=== PATIENT | female | born 1970 | race Caucasian/White ===

== ENCOUNTER 2017-02-07 20:58 | Emergency (ER) | payer OTHER, MEDICARE ==
[~2017-02-07] VITALS: Ht 177.8 cm; Wt 105.2 kg
[2017-02-07 21:33] LABS: ABSOLUTE BASOPHIL COUNT 0 /CUMM (0.0-0.2); ABSOLUTE EOSINOPHIL COUNT 0.2 /CUMM (0.0-0.7); ABSOLUTE GRANULOCYTE CT 6.2 /CUMM (1.4-6.5); ABSOLUTE LYMPH COUNT 2.7 /CUMM (1.2-3.4); ABSOLUTE MONOCYTE COUNT 0.7 /CUMM (0.10-0.60); BASOPHIL % 0.1 % (0.0-2.0); EOSINOPHIL % 1.8 % (0-5); GRANULOCYTE % 63.2 % (42.2-75.2); HEMATOCRIT 45.8 % (37-47); MEAN CORPUSCULAR HGB 30.5 PG (27.0-31.0); MEAN CORPUSCULAR HGB CONC 33.3 G/DL (33.0-37.0); MEAN CORPUSCULAR VOLUME 91.4 FL (81.0-99.0); MEAN PLATELET VOLUME 10.2 FL (7.4-10.4); PLATELET COUNT 215 /CUMM (130-400); RBC DISTRIBUTION WIDTH 13.7 % (11.5-14.5); RED BLOOD CELL CT 5.01 /CUMM (4.20-5.40); WHITE BLOOD CELL COUNT 9.8 /CUMM (4.8-10.8)
--- NOTE | 2017-02-07 22:02 | ED GENERAL ADULT ---
History of Present Illness General Chief Complaint: General Adult Stated Complaint: HIGH BLOOD SUGAR, BLURRY VISION, CONFUSION Source: patient, EMS Exam Limitations: poor historian Vital Signs & Intake/Output Vital Signs & Intake/Output ED Intake and Output 02/09 0000 02/08 1200 Intake Total 1000 Output Total Balance 1000 Intake, IV 1000 Allergies Coded Allergies: Penicillins (HIVES 02/07/17) Sulfa (Sulfonamide Antibiotics) (RASH 02/07/17) Reconcile Medications Clindamycin HCl (Cleocin HCl) 300 MG CAPSULE 1 CAP PO TID DENTAL INFECTION Triage Note: PT TO ED C/O HIGH FINGERSTICK AT HOME, SEEING SPOTS AND CONFUSION. PMH OF IDDM, STATES WOKE UP AT 230 THIS AM, FELT "WEIRD AND DIZZY SO I KNEW MY SUGAR WAS HIGH" "I DID A FACE PLANT ON THE FLOOR AND KNOCKED OUT 2 OF MY FRONT TEETH" SPENT ALL DAY IN BWED WITH DOG. FINGERSTICK AT HOME 579 AT 2012. TOOK 60 UNITS HUMALOG AT 2034. FINGERSTICK IN TRIAGE 385. PT STATES SHE FEELS CONFUSED "NOT MYSELF" PMH OF HTN, BP 202/96 MANUAL. STATES A1C WAS LAST OVER 14. INSULIN WAS RECENTLY INCREASED Triage Nurses Notes Reviewed? yes Onset: Gradual Duration: day(s): (1) Timing: remote history Injury Environment: home Severity: severe Severity Numbers: 8 No Modifying Factors: none : No Patient currently breastfeeds: No HPI: Patient is a 46-year-old female with history of diabetes presenting to the emergency department with chief complaint of elevated blood glucose level has been going on for the past 24 hours. She had associated blurred vision with it. She also felt confused at the time but does not currently feel confused. She woke up last night and checked her blood glucose level can she felt lightheaded was high and it read as "high". She took appropriate medication to help with her hyperglycemia at the time and went back to sleep. She woke up a second time in the morning and thus when she started to feel confused. She took her blood glucose level again and it was also noted as elevated, patient reports it was around 400. She became lightheaded and then passed out. She reports that she fell on her 2 front teeth and they got knocked out. She was only out for a few seconds because she has a therapy dog who woke her up. Denies any neck pain or back pain. Patient also complaining about a dental infection in the past 6 months. She reports that her right lower gum line has been erythematous and positive been coming on over the past 6 months. Unable to get in to see her dentist. Denies any fevers or chills. No palpitations. (VICENTA ZARATE) Past History Travel History Traveled to [place] past 21 day No Medical History Any Pertinent Medical History? see below for history Cardiovascular: hypertension Gastrointestinal: FATTY LIVER Endocrine: diabetes Surgical History Surgical History: non-contributory Psychosocial History What is your primary language Turkmen Tobacco Use: Never used ETOH Use: denies use Illicit Drug Use: denies illicit drug use Family History Hx Contributory? No (VICENTA ZARATE) Review of Systems Review of Systems Constitutional: Reports: malaise, weakness. Comments Review of systems: See HPI, All other systems negative. Constitutional, no chills fever or weight loss HEENT: no sore throat no congestion Cardiovascular: No chest pain ,palpitation , orthopnea or ankle swelling Skin, no jaundice no rashes Respiratory: No dyspnea cough sputum or hemoptysis GI: No nausea no vomiting : No dysuria No hematuria Muscle skeletal: no back pain, no neck pain, Neurologic: No numbness Psych: No stress anxiety or depression,. Heme/endocrine: No bruising no bleeding no polyuria or polydipsia Immunology: No splenectomy or history of AIDS (VICENTA ZARATE) Physical Exam Physical Exam General Appearance: well developed/nourished, no apparent distress, alert, awake , comfortable Comments: Well-developed well-nourished person in no acute distress HEENT: extraocular motion intact, no nystagmus. Pupils equally round and reactive to light and accommodation. Nose is atraumatic. External auditory canal and Tympanic membranes clear. Pharynx normal. No swelling or edema. Patient does have several missing teeth, moderate erythema noted on the right lower gumline with mild amount of purulent discharge expelled with pressure. Neck: Supple, no lymphadenopathy, normal range of motion without pain or tenderness, no C-spine tenderness. Back: Nontender, no CVA tenderness. Full range of motion Cardiovascular: Regular rate and rhythms no murmurs rubs or gallops, normal JVP Respiratory: Chest nontender. No respiratory distress.breath sounds clear to auscultation bilaterally Abdomen: Soft, nontender nondistended, no appreciable organomegaly. Normal bowel sounds. No ascites, no rebound or guarding. Extremity: No edema, no calf tenderness to palpation, normal and equal pulses. Muscular strength is 5 out of 5 in all extremities. Supervisor Shuttle Preparation strength is equal and symmetric bilaterally. Neuro: Alert oriented x3, motor sensory normal, cranial nerves II through XII grossly intact. Cerebellar testing is unremarkable. Skin: No appreciable rash on exposed skin, skin is warm and dry. Psych: Mood and affect is normal, memory and judgment is normal. Core Measures ACS in differential dx? Yes CVA/TIA Diagnosis: No Severe Sepsis Present: No Septic Shock Present: No (FABIAN MARTINES,VICENTA) Progress Differential Diagnoses I considered the following diagnoses in my evaluation of the patient: DKA, hyperglycemia, hypoglycemia, poor control of diabetes, intracranial hemorrhage, electrolyte abnormality, dehydration, dental infection, acute dental trauma Plan of Care: Orders Procedure Date/time Status Add-on Test (ER Only) 02/088 Active Add-on Test (ER Only) 02/07 225 Active FingerStick- Glucose 02/07 2218 Active Add-on Test (ER Only) 02/07 2213 Active URINALYSIS 02/07 2201 Complete EKG 02/08 2148 Active ARTERIAL BLOOD GAS (GEN) 02/07 2147 Complete TROPONIN LEVEL 02/07 2122 Active CREATINE PHOSPHOKINASE 02/07 2122 Active LIPASE 02/07 2119 Active COMPREHENSIVE METABOLIC PANEL 02/07 2119 Active CBC WITHOUT DIFFERENTIAL 02/07 2119 Complete AMYLASE 02/07 2119 Active ACETONE 02/07 2119 Active Laboratory Tests 02/08/17 0010: Urine Color YEL, Urine Clarity CLEAR, Urine pH 6.5, Ur Specific [place] 1.010, Urine Protein NEG, Urine Ketones NEG, Urine Nitrite NEG, Urine Bilirubin NEG, Urine Urobilinogen 0.2, Ur Leukocyte Esterase NEG, Ur Microscopic EXAM NOT REQUIRED, Urine Hemoglobin NEG, Urine Glucose >=1000 H 02/07/170: pH 7.45, pCO2 33 L, pO2 98, HCO3 23, ABG O2 Sat (Measured) 95.0 L, P-50 (Temp Corrected) N, Carboxyhemoglobin 2.5, O2 Concentration % R/A, Temperature 98.5, Phlebotomy Draw Site LEFT RADIAL 02/07/172121: Anion Gap 15, Estimated GFR > 60, BUN/Creatinine Ratio 13.3, Glucose 418 H, Calcium 10.0, Total Bilirubin 0.4, AST 32, ALT 50, Alkaline Phosphatase 77, Creatine Kinase 96, Troponin I Pending, Total Protein 8.0, Albumin 4.9, Globulin 3.1, Albumin/Globulin Ratio 1.6, Amylase 45, Lipase 266, CBC w Diff NO MAN DIFF REQ, RBC 5.01, MCV 91.4, MCH 30.5, RDW 13.7, MPV 10.2, Gran % 63.2, Lymphocytes % 27.3, Monocytes % 7.6, Eosinophils % 1.8, Basophils % 0.1, Absolute Granulocytes 6.2, Absolute Lymphocytes 2.7, Absolute Monocytes 0.7 H, Absolute Eosinophils 0.2, Absolute Basophils 0, PUBS MCHC 33.3, Acetone Level NEGATIVE Diagnostic Imaging: Viewed by Me: Radiology Read. Discussed w/RAD: Radiology Read. Radiology Impression: PATIENT: CHARLES GARNICA PRESENT AGE: 46 PATIENT ACCOUNT NO: [id number] : 71 LOCATION: [facility] ORDERING PHYSICIAN: VICENTA MARTINES SERVICE DATE: 02/07/17 EXAM TYPE: CAT - CT HEAD WO IV CONTRAST EXAMINATION: CT HEAD WITHOUT CONTRAST CLINICAL INFORMATION: Hypertensive urgency and blurred vision. Confusion. COMPARISON: None. TECHNIQUE: Contiguous axial imaging was performed from the skull base to vertex without intravenous administration of contrast. DLP: 600 mGy-cm FINDINGS: No acute intracranial abnormality. No acute intracranial hemorrhage, mass or mass effect or abnormal extra-axial fluid collections. The density within the dural venous sinuses is within normal limits. The ventricles are normal in size, without hydrocephalus. There are no focal areas of hypoattenuation within a vascular distribution to suggest acute transcortical ischemia. The basilar cisterns are patent. No acute calvarial abnormality is identified. Soft tissues appear unremarkable. The imaged paranasal sinuses and mastoid air cells are well aerated. IMPRESSION: No acute intracranial pathology. DICTATED BY: PRIYA VAZQUEZ MD DATE/TIME DICTATED:02/07/172238 PATENT AGENT:EDWARD DATE/TIME TRANSCRIBED:02/07/172238 CONFIDENTIAL, DO NOT COPY WITHOUT APPROPRIATE AUTHORIZATION. <Electronically signed in Other Vendor System> Initial ED EKG: SINUS TACHY Comments: Arrival patient medicated with IV hydration. She does have an active dental infection. Otherwise neurologically intact. She'll go for CT secondary to syncope. Likely secondary to hyperglycemia. Patient's blood glucose here on arrival was over 400. We will assess for DKA. Patient informed of all lab work results and imaging study results. No signs of DKA. We will continue monitoring blood glucose until it gets down to approximately 2:15 and patient can be discharged home. Patient's repeat blood glucose level was 259. She is alert and oriented. No continued symptoms. She'll be treated for dental infection and discharged home. She'll follow-up with her dentist on Saturday. Patient nontoxic. She is educated on keeping a close dry blood glucose levels and obtaining better control. She will WORK ON THIS with her primary care physician. (VICENTA ZARATE) Departure Departure Time of Disposition: 108 Disposition: HOME OR SELF CARE Condition: Stable Clinical Impression Primary Impression: Hyperglycemia Secondary Impressions: Dental infection Syncope Qualifiers: Syncope type: unspecified Qualified Code: R55 - Syncope and collapse Additional Instructions: Follow-up with her primary care physician call to make appointment. Take an of access prescribed. Keep a close eye on blood glucose levels. Return for worsening symptoms or concerns. Departure Forms: Customer Survey General Discharge Information Prescriptions: Current Visit Scripts Clindamycin HCl (Cleocin HCl) 1 CAP PO TID #30 CAP (VICENTA ZARATE) PA/STRAIGHTENING MACHINE FEEDER Co-Sign Statement Statement: ED Attending supervision documentation- [] I saw and evaluated the patient. I have also reviewed all the pertinent lab results and diagnostic results. I agree with the findings and the plan of care as documented in the PA's/STRAIGHTENING MACHINE FEEDER's documentation. x I have reviewed the ED Record and agree with the PA's/STRAIGHTENING MACHINE FEEDER's documentation. [] Additions or exceptions (if any) to the PAs/STRAIGHTENING MACHINE FEEDER's note and plan are summarized below: [] (ANA LUISA SAUCEDA MD) Critical Care Note Critical Care Note Critical Care Time: non-applicable (VICENTA ZARATE)
--- NOTE | 2017-02-07 22:43 | CT SCAN REPORT ---
EXAMINATION: CT HEAD WITHOUT CONTRAST CLINICAL INFORMATION: Hypertensive urgency and blurred vision. Confusion. COMPARISON: None. TECHNIQUE: Contiguous axial imaging was performed from the skull base to vertex without intravenous administration of contrast. DLP: 600 mGy-cm FINDINGS: No acute intracranial abnormality. No acute intracranial hemorrhage, mass or mass effect or abnormal extra-axial fluid collections. The density within the dural venous sinuses is within normal limits. The ventricles are normal in size, without hydrocephalus. There are no focal areas of hypoattenuation within a vascular distribution to suggest acute transcortical ischemia. The basilar cisterns are patent. No acute calvarial abnormality is identified. Soft tissues appear unremarkable. The imaged paranasal sinuses and mastoid air cells are well aerated. IMPRESSION: No acute intracranial pathology.
[2017-02-08] MEDS ORDERED: CLEOCIN HCL300 M1 PO (01:10)
[2017-02-08 02:29] VITALS: BP 134/90
== END 2017-02-08 02:38 ==
LOC: ERH 20:58
PROVIDERS: Emergency Medicine
DX: E11.65 Type 2 diabetes mellitus with hyperglycemia (principal); K04.7 Periapical abscess without sinus; R55 Syncope and collapse; R41.0 Disorientation, unspecified
CPT/HCPCS: 81003; 93005; 93010